=== PATIENT | female | born 2000 | race Caucasian/White ===

== ENCOUNTER 2022-08-27 17:03 | Emergency (ER) | payer MEDICAID, SELFPAY ==
[2022-08-27 17:19] VITALS: BP 145/95; PULSE 82; RESP 16; TEMP 36.6; O2SAT 99
[2022-08-27 18:59] LABS: Basophils % 0.3 %; Eosinophils # 0.2 10^3/uL (0.0-0.8); Eosinophils % 2.1 %; Hematocrit 37.8 % (37.0-47.0); Hemoglobin 12.3 g/dL (11.5-15.3); Lymphocytes # 2.8 10^3/uL (0.8-4.8); Lymphocytes % 27.6 %; Mean Corpuscular HGB Conc 32.5 g/dL (30.0-36.0); Mean Corpuscular Hemoglobin 25.2 pg (28.0-34.0); Mean Corpuscular Volume 77.5 fl (81-99); Mean Platelet Volume 9.6 fL (7.4-10.4); Monocytes # 0.6 10^3/uL (0.2-0.9); Monocytes % 6.3 %; Neutrophils # 6.48 10^3/uL (1.8-7.7); Neutrophils % 63.3 %; Nucleated Red Blood Cells % 0 %; Platelet Count 320 10^3/cmm (130-400); Red Blood Count 4.88 10^6/uL (4.1-5.3); Red Cell Distribution Width 14.2 % (12.1-15.1); White Blood Count 10.2 10^3/uL (4.0-10.0)
[2022-08-27 19:15] VITALS: BP 115/65; PULSE 90; RESP 16; O2SAT 98
--- NOTE | 2022-08-27 19:27 | ED_ITS ---
HPI - GI Bleed General: Chief complaint: GI Bleed Stated complaint: diarrhea/bloody stool/abd pain Time Seen by Provider: 08/27/22 19:08 Source: patient Mode of arrival: ambulatory Limitations: no limitations History of Present Illness: 22-year-old female states she has had chronic diarrhea. States she has had diarrhea for over 3 years she states that she just moved. She is never seen anyone for this she states she just does not want to do she has not been taking any meds states she had some slight blood in her stool as well. She denies any pain denies any fever denies any vomiting or diarrhea. Associated symptoms: Denies chills, fever(s), headache(s) or rash Review of Systems Const: Denies: fever(s), chills, body aches or change in appetite ENMT: Denies: throat pain or dental pain Card: Denies: chest pain Resp: Denies: dyspnea GI: Reports: diarrhea and hematochezia : Denies: dysuria Musc: Denies: neck pain or back pain Skin/Breast: Denies: rash Neuro: Denies: headache(s) PFSH ED PFSH: Medical History (Updated 08/27/22 @ 19:52 by Daja Ackerman MD) No pertinent past medical history Social History (Updated 08/27/22 @ 19:28 by Daja Ackerman MD) Substance/Drug Use: never Physical Exam Const: COMMON NORMALS: no acute distress, patient oriented x3 and healthy appearing HENMT: COMMON NORMALS: normocephalic and atraumatic HEAD & SCALP: normocephalic and atraumatic Eye: COMMON NORMALS: conjunctivae normal CONJUNCTIVA: Yes conjunctivae normal Neck/C-Spine: COMMON NORMALS: supple Chest: COMMONS NORMALS: normal inspection of the chest and normal palpation of entire chest wall Resp: COMMON NORMALS: normal respiratory effort, No retractions, No use of accessory muscles and clear to auscultation bilaterally AUSCULTATION: clear to auscultation bilaterally Cardio: COMMON NORMALS: regular rate, regular rhythm and No murmurs present (Cardio) RATE: regular rate RHYTHM: regular rhythm GI: COMMON NORMALS: Normal to inspection, nondistended, normoactive bowel sounds present, Soft to palpation, non-tender and no masses PALPATION: Yes Soft to palpation Extremity: COMMON NORMALS: normal to inspection and full ROM Neuro: COMMON NORMALS: patient oriented x3, moves all extremities and no focal motor deficits Psych: COMMON NORMALS: mental status grossly normal, Normal thought process present and cooperative THOUGHT PROCESS: Normal thought process present Skin: COMMON NORMALS: no rashes or lesions noted and no wounds GENERAL SKIN EXAM: no rashes or lesions noted Course Vital Signs: Vital signs: Vital Signs Temperature 97.8 F 08/27/22 17:19 Pulse Rate 90 08/27/22 19:15 Respiratory Rate 16 08/27/22 19:15 Blood Pressure 115/65 08/27/22 19:15 Pulse Oximetry 98 08/27/22 19:15 Oxygen Delivery Me thod Room Air 08/27/22 19:15 MDM - GI Bleed Medical Decision Making Patient presents for diarrhea is been chronic in nature its been going on for years she just moved here she had some blood in her stool she refused a rectal exam her hemoglobin here is normal is likely from a fissure. We will start her on Imodium along with Bentyl she is to follow-up with the PCP I put an order into case management she is return if worsening she has no pain abdominal exam is benign she understands agrees to plan. Lab Data 08/27/22 18:38 08/27/22 18:38 Laboratory Results WBC 10.2 10^3/uL (4.0-10.0) H 08/27/22 18:38 RBC 4.88 10^6/uL (4.1-5.3) 08/27/22 18:38 Hgb 12.3 g/dL (11.5-15.3) 08/27/22 18:38 Hct 37.8 % (37.0-47.0) 08/27/22 18:38 MCV 77.5 fl (81-99) L 08/27/22 18:38 MCH 25.2 pg (28.0-34.0) L 08/27/22 18:38 MCHC 32.5 g/dL (30.0-36.0) 08/27/22 18:38 RDW 14.2 % (12.1-15.1) 08/27/22 18:38 Plt Count 320 10^3/cmm (130-400) 08/27/22 18:38 MPV 9.6 fL (7.4-10.4) 08/27/22 18:38 Neut % (Auto) 63.3 % 08/27/22 18:38 Lymph % (Auto) 27.6 % 08/27/22 18:38 [place] % (Auto) 6.3 % 08/27/22 18:38 Eos % (Auto) 2.1 % 08/27/22 18:38 Baso % (Auto) 0.3 % 08/27/22 18:38 Neut # (Auto) 6.48 10^3/uL (1.8-7.7) 08/27/22 18:38 Lymph # (Auto) 2.8 10^3/uL (0.8-4.8) 08/27/22 18:38 [place] # (Auto) 0.6 10^3/uL (0.2-0.9) 08/27/22 18:38 Eos # (Auto) 0.2 10^3/uL (0.0-0.8) 08/27/22 18: Baso # (Auto) 0.0 10^3/uL (0.0-0.1) 08/27/22 18:38 Nucleated RBC % (auto) 0 % 08/27/22 18: Nucleated RBCs # 0.0 /100WBC 08/27/22 18:38 Sodium 141 mmol/L (136-145) 08/27/22 18:38 Potassium 4.1 mmol/L (3.5-5.1) 08/27/22 18:38 Chloride 105 mmol/L (98-107) 08/27/22 18:38 Carbon Dioxide 25 mmol/L (22-29) 08/27/22 18:38 Anion Gap 15.1 (5-19) 08/27/22 18:38 BUN 10 mg/dL (6-20) 08/27/22 18:38 Creatinine 0.7 mg/dL (0.5-0.9) 08/27/22 18:38 GFR Calculation 104.6 mL/min (90-130) 08/27/22 18:38 Glucose 85 mg/dL (65-115) 08/27/22 18:38 Calculated Osmolality 290 mOsm/kg (285-295) 08/27/22 18:38 Calcium 8.4 mg/dL (8.5-10.5) L 08/27/22 18:38 Total Bilirubin 0.3 mg/dL (0.15-1.2) 08/27/22 18:38 AST 11 U/L (0-32) 08/27/22 18:38 ALT 12 U/L (0-33) 08/27/22 18:38 Alkaline Phosphatase 94 U/L (35-105) 08/27/22 18:38 Total Protein 7.4 g/dL (6.6-8.7) 08/27/22 18:38 Albumin 4.2 g/dL (3.5-5.2) 08/27/22 18:38 Globulin 3.2 g/dL (1.3-4.6) 08/27/22 18:38 Discharge Plan Discharge Patient Disposition: Home Clinical Impression: Diarrhea, Blood in stool Prescriptions: New Imodium A-D 2 mg capsule 2 mg PO Q6H PRN (Reason: loose stool) Qty: 30 0RF dicyclomine 20 mg tablet 20 mg PO TID PRN (Reason: abdominal discomfort) Qty: 30 0RF Discharge Orders: Discharge ED (Routine); Ordered 08/27/22 Ordered By: Daja Ackerman Discharge Diet: Advance as tolerated Discharge Activity: Resume usual activity Patient Instructions: Chronic Diarrhea (ED) Stand Alone Forms: Work/School Release Coding Level of Care Code ED Timber Cruiser for Delmy Marley
[2022-08-27 19:29] LABS: Alanine Aminotransferase 12 U/L (0-33); Albumin Level 4.2 g/dL (3.5-5.2); Alkaline Phosphatase 94 U/L (35-105); Anion Gap 15.1 (5-19); Aspartate Amino Transferase 11 U/L (0-32); Blood Urea Nitrogen 10 mg/dL (6-20); Calcium 8.4 mg/dL (8.5-10.5); Carbon Dioxide 25 mmol/L (22-29); Chloride 105 mmol/L (98-107); Globulin 3.2 g/dL (1.3-4.6); Glomerular Filtration Rate 104.6 mL/min (90-130); Glucose 85 mg/dL (65-115); Osmolality Calculated 290 mOsm/kg (285-295); Potassium 4.1 mmol/L (3.5-5.1); Sodium 141 mmol/L (136-145); Total Bilirubin 0.3 mg/dL (0.15-1.2); Total Protein 7.4 g/dL (6.6-8.7)
[2022-08-27] MEDS: diphenoxylate/atropine Tablet 2 TAB PO (19:38)
[2022-08-27] MEDS: dicyclomine 20 mg Tablet PO (19:38)
--- NOTE | 2022-08-28 09:46 | DCPLANNER ---
senior consulting manager had message to speak with patient about getting established with a primary care physicia. senior consulting manager called patient, not accepting calls at this time.
--- NOTE | 2022-09-01 14:26 | DCPLANNER ---
associate manager affiliate marketing called patient due to no primary care physician - not accepting calls at this time.
== END 2022-08-27 20:03 | disposition home or self-care (01) ==
PROVIDERS: Nurse Practitioner Family; Emergency Provider Emergency Medicine
DX: R19.7 Diarrhea, unspecified (principal); K92.1 Melena
CPT/HCPCS: 36415; 80053; 85025; 99283

== ENCOUNTER 2022-09-09 17:28 | Emergency (ER) | payer MEDICAID, SELFPAY ==
[2022-09-09 17:35] VITALS: BP 146/77; PULSE 84; RESP 16; TEMP 36.6; O2SAT 95; BMI 37.8
--- NOTE | 2022-09-09 18:25 | W.ED.BACK ---
HPI - Back Pain/Injury General: Chief Complaint: Back Pain/Injury Stated Complaint: back pain Time Seen by Provider: 09/09/22 18:22 History of Present Illness: 22-year-old female comes in today with complaints of low back pain that radiates down her right leg. Patient also has some problems with diarrhea when she has this type of back pain. Patient reports she has had issues with her back hurting for several years now. This episode has been for the last 4 days and today she is able to ambulate better without difficulty. Patient states she has no primary care. Patient appears nontoxic. Patient appears in mild pain. Associated symptoms: Deny fever(s) or vomiting Review of Systems Const: Denies: fever(s) Card: Denies: chest pain Resp: Denies: dyspnea GI: Reports: diarrhea; Denies: vomiting : Denies: difficulty voiding Musc: Reports: back pain Skin/Breast: Denies: rash Neuro: Reports: numbness in extremities (Right side) [facility] ED PFSH: Medical History (Updated 09/09/22 @ 18:41 by ARNALDO Medeiros) No pertinent past medical history Social History (Updated 08/27/22 @ 19:28 by Daja Ackerman MD) Substance/Drug Use: never Physical Exam Const: COMMON NORMALS: alert HENMT: COMMON NORMALS: normocephalic HEAD & SCALP: normocephalic Neck/C-Spine: COMMON NORMALS: full ROM Resp: COMMON NORMALS: normal respiratory effort and clear to auscultation bilaterally AUSCULTATION: clear to auscultation bilaterally Cardio: COMMON NORMALS: regular rate and regular rhythm RATE: regular rate RHYTHM: regular rhythm GI: COMMON NORMALS: non-tender Back/Pelvis: THORACIC SPINE/UPPER BACK: No thoracic spinal tenderness LUMBAR SPINE/LOWER BACK: Yes lumbar spinal tenderness Lumbar spinal tenderness location: L5 and Yes paraspinal muscle tenderness Extremity: COMMON NORMALS: normal to inspection Neuro: SENSORIUM/ORIENTATION: Yes alert Skin: COMMON NORMALS: turgor normal GENERAL SKIN EXAM: turgor normal Course Vital Signs: Vital signs: Vital Signs Temperature 97.9 F 09/09/22 17:35 Pulse Rate 84 09/09/22 17:35 Respiratory Rate 16 09/09/22 17:35 Blood Pressure 146/77 09/09/22 17:35 Pulse Oximetry 95 09/09/22 17:35 Oxygen Delivery Me thod Room Air 09/09/22 17:35 MDM - Back Pain/Injury Medical Decision Making 22-year-old female comes in today with complaints of low back pain. On exam patient has tenderness L5-S1 area of the lumbar spinal column. Abdomen soft nontender. Skin is warm and dry. Negative leg lift test. Distal pulses are intact. Patient reports some numbness to the right lower extremity, no foot drop is noted. Differential diagnosis includes lumbar strain, intervertebral disc disease, facet arthropathy, lumbar radiculopathy. Reviewed exam with patient with recommendations for treatment and follow-up. This is a recurrent problem for the patient most likely due to weight and intervertebral disc disease. Recommended patient follow-up with primary care for further evaluation and treatment. No sign of severe abnormalities is noted at this time. Patient reported understanding agreed to plan. Discharge Plan Discharge Patient Disposition: Home Clinical Impression: Sciatica Qualifiers: Laterality: right Qualified Code(s): M54.31 - Sciatica, right side Condition: Stable Prescriptions: New hydrocodone-acetaminophen 5-325 mg tablet 1 tab PO Q8H PRN (Reason: pain (scale score 7-10)) Qty: 10 0RF diclofenac sodium 75 mg tablet,delayed release (DR/EC) 75 mg PO BID Qty: 30 0RF No Action Imodium A-D 2 mg capsule 2 mg PO Q6H PRN (Reason: loose stool) Qty: 30 0RF dicyclomine 20 mg tablet 20 mg PO TID PRN (Reason: abdominal discomfort) Qty: 30 0RF Discharge Orders: Discharge ED (Routine); Ordered 09/09/22 Ordered By: Frankie Rae Discharge Diet: Usual diet Discharge Activity: Increase activity as tolerated Patient Instructions: Lumbar Radiculopathy (ED), Lower Back Exercises (ED), Opioid Safety Activity Restrictions/Additional Instructions: Activity as tolerated. Gentle stretching and range of motion exercises. Drink plenty of water and fluids. Use diclofenac 75 mg 1 tablet twice a day to help with pain and inflammation. Use acetaminophen for further pain control. Use hydrocodone for severe pain. Do not use hydrocodone if driving or operating equipment weight yourself or others may be at risk. Follow-up with primary care. Case management will contact you with follow-up appointment for primary care. Stand Alone Forms: Work/School Release Coding Level of Care Code ED Tower Equipment Repairer for Delmy Marley
[2022-09-09] MEDS: HYDROcodone-acetaminophen 5-325 mg Tablet 1 TAB PO (18:59)
[2022-09-09] MEDS: ketorolac 30 mg/mL INJ IM (18:59)
--- NOTE | 2022-09-10 08:44 | DCPLANNER ---
environmental compliance manager had message to speak with patient about getting established with a primary care physician. environmental compliance manager called phone number [phone] - case work aide unable to speak with patient at this time due to phone not accepting calls at this time.
== END 2022-09-09 19:04 | disposition home or self-care (01) ==
PROVIDERS: Emergency Provider Nurse Practitioner Family
DX: M54.31 Sciatica, right side (principal)
CPT/HCPCS: 96372; 99284; J1885

== ENCOUNTER 2022-10-31 12:55 | Inpatient (IN) | payer MEDICAID, SELFPAY ==
[2022-10-31 12:57] VITALS: BP 122/92; PULSE 83; RESP 18; TEMP 36.8; O2SAT 98; BMI 34.3
--- NOTE | 2022-10-31 13:00 | W.ED.PSYCHS ---
HPI - Psych General: Chief Complaint: Psychiatric Symptoms Stated Complaint: PSYCH EVAL Time Seen by Provider: 10/31/22 12:59 History of Present Illness: Ms. Yancey is a 22-year-old lady presenting the emergency department for suicidal ideation. She reports worsening symptoms over the past month with increased social stressors. She reports plan to overdose on her roommates medications. She feels socially isolated and has limited resources and social support. She does report a history of depression though is not currently on medications. She reports difficulty with sleep, headaches, palpitations, generally feeling unwell. No other specific changes in health, exacerbating, or alleviating factors identified. Onset (ago): week(s) Duration: getting worse History of same: Yes Context: significant life stressor Associated psychiatric symptoms: depression and suicidal ideation Review of Systems General: Reports: 10 or more systems reviewed and unremarkable except in HPI and below PFSH ED PFSH: Medical History No pertinent past medical history Social History Substance/Drug Use: never Physical Exam Const: COMMON NORMALS: alert GENERAL APPEARANCE: cooperative and well developed HENMT: COMMON NORMALS: normocephalic and atraumatic HEAD & SCALP: normocephalic and atraumatic Eye: COMMON NORMALS: conjunctivae normal CONJUNCTIVA: Yes conjunctivae normal SCLERA: sclerae normal Neck/C-Spine: COMMON NORMALS: supple GENERAL: Yes trachea midline Resp: COMMON NORMALS: clear to auscultation bilaterally EFFORT & INSPECTION: Yes able to speak in complete sentences AUSCULTATION: clear to auscultation bilaterally Cardio: COMMON NORMALS: regular rate and regular rhythm RATE: regular rate RHYTHM: regular rhythm GI: COMMON NORMALS: Soft to palpation PALPATION: Yes Soft to palpation and No Tenderness to palpation present (GI) Extremity: GENERAL: Yes normal exam except as noted and No edema Neuro: COMMON NORMALS: moves all extremities SENSORIUM/ORIENTATION: Yes alert and No Orientation impaired Psych: COMMON NORMALS: mental status grossly normal and Normal thought process present THOUGHT PROCESS: Normal thought process present Course Vital Signs: Vital signs: Vital Signs Temperature 98.4 F 11/03/22 20:32 Pulse Rate 94 11/04/22 07:18 Respiratory Rate 15 11/04/22 07:18 Blood Pressure 95/64 11/04/22 07:18 Pulse Oximetry 97 11/04/22 07:18 Oxygen Delivery Me thod Room Air 11/03/22 20:32 MDM - Psych Medical Decision Making 22-year-old female presenting with suicidal and homicidal ideation. Patient is calm and cooperative, nontoxic on exam. Labs demonstrate no significant hematologic or metabolic abnormality. TSH is normal. Urine drug screen and toxic ingestions are negative. hCG negative. Given physical exam and clinical history provided there is no indication for imaging at this time. Based on ED evaluation at this point there is no obvious condition that would preclude the patient from inpatient management of psychiatric concerns/symptoms. Discussed with psychiatry service who was agreeable to admit patient. Patient desires admission. Medical Records I reviewed the patient's medical records. Lab Data I reviewed the patient's lab results. 10/31/22 13:47 10/31/22 13:47 Laboratory Results WBC 8.2 10^3/uL (4.0-10.0) 10/31/22 13:47 RBC 5.52 10^6/uL (4.1-5.3) H 10/31/22 13:47 Hgb 14.0 g/dL (11.5-15.3) 10/31/22 13:47 Hct 43.5 % (37.0-47.0) 10/31/22 13:47 MCV 78.8 fl (81-99) L 10/31/22 13:47 MCH 25.4 pg (28.0-34.0) L 10/31/22 13:47 MCHC 32.2 g/dL (30.0-36.0) 10/31/22 13:47 RDW 14.3 % (12.1-15.1) 10/31/22 13:47 Plt Count 364 10^3/cmm (130-400) 10/31/22 13:47 MPV 10.3 fL (7.4-10.4) 10/31/22 13:47 Neut % (Auto) 63.3 % 10/31/22 13:47 Lymph % (Auto) 28.1 % 10/31/22 13:47 [place] % (Auto) 5.4 % 10/31/22 13:47 Eos % (Auto) 2.4 % 10/31/22 13:47 Baso % (Auto) 0.4 % 10/31/22 13:47 Neut # (Auto) 5.18 10^3/uL (1.8-7.7) 10/31/22 13:47 Lymph # (Auto) 2.3 10^3/uL (0.8-4.8) 10/31/22 13:47 [place] # (Auto) 0.4 10^3/uL (0.2-0.9) 10/31/22 13:47 Eos # (Auto) 0.2 10^3/uL (0.0-0.8) 10/31/22 13:47 Baso # (Auto) 0.0 10^3/uL (0.0-0.1) 10/31/22 13:47 Nucleated RBC % (auto) 0 % 10/31/22 13:47 Nucleated RBCs # 0.0 /100WBC 10/31/22 13:47 Sodium 140 mmol/L (136-145) 10/31/22 13:47 Potassium 3.6 mmol/L (3.5-5.1) 10/31/22 13:47 Chloride 104 mmol/L (98-107) 10/31/22 13:47 Carbon Dioxide 23 mmol/L (22-29) 10/31/22 13:47 Anion Gap 16.6 (5-19) 10/31/22 13:47 BUN 8 mg/dL (6-20) 10/31/22 13:47 Creatinine 0.7 mg/dL (0.5-0.9) 10/31/22 13:47 GFR Calculation 104.6 mL/min (90-130) 10/31/22 13:47 Glucose 93 mg/dL (65-115) 10/31/22 13:47 Calculated Osmolality 288 mOsm/kg (285-295) 10/31/22 13:47 Calcium 9.3 mg/dL (8.5-10.5) 10/31/22 13:47 Total Bilirubin 0.6 mg/dL (0.15-1.2) 10/31/22 13:47 AST 20 U/L (0-32) 10/31/22 13:47 ALT 18 U/L (0-33) 10/31/22 13:47 Alkaline Phosphatase 106 U/L (35-105) H 10/31/22 13:47 Total Protein 8.1 g/dL (6.6-8.7) 10/31/22 13:47 Albumin 4.8 g/dL (3.5-5.2) 10/31/22 13:47 Globulin 3.3 g/dL (1.3-4.6) 10/31/22 13:47 TSH 1.29 uIU/mL (0.27-4.20) 10/31/22 13:47 HCG, Qual Negative (Negative) 10/31/22 13:47 Salicylates 1.3 mg/dL (3-10) L 10/31/22 13:47 Urine Opiates Screen Negative ng/mL (Negative) 10/31/22 13:37 Acetaminophen < 5.0 ug/mL (10-30) L 10/31/22 13:47 Ur Barbiturates Screen Negative ng/mL (Negative) 10/31/22 13:37 Ur Phencyclidine Scrn Negative ng/mL (Negative) 10/31/22 13:37 Ur Amphetamines Screen Negative ng/mL (Negative) 10/31/22 13:37 U Benzodiazepines Scrn Negative ng/mL (Negative) 10/31/22 13:37 Urine Cocaine Screen Negative ng/mL (Negative) 10/31/22 13:37 U Marijuana (THC) Screen Negative ng/mL (Negative) 10/31/22 13:37 Ethyl Alcohol < 10 mg/dL (0-10) 10/31/22 13:47 Discharge Plan Discharge Patient Disposition: Admitted As Inpatient Admit Provider: Nicanor Bueno Clinical Impression: Suicidal ideation Condition: Stable Discharge Diet: Regular Discharge Activity: Resume usual activity Coding Level of Care Code ED Boiling House Hand for Delmy Marley
[2022-10-31 13:07] VITALS: BP 122/92; PULSE 83; RESP 18; O2SAT 98
[2022-10-31 14:02] LABS: Basophils % 0.4 %; Eosinophils # 0.2 10^3/uL (0.0-0.8); Eosinophils % 2.4 %; Hematocrit 43.5 % (37.0-47.0); Lymphocytes # 2.3 10^3/uL (0.8-4.8); Lymphocytes % 28.1 %; Mean Corpuscular HGB Conc 32.2 g/dL (30.0-36.0); Mean Corpuscular Hemoglobin 25.4 pg (28.0-34.0); Mean Corpuscular Volume 78.8 fl (81-99); Mean Platelet Volume 10.3 fL (7.4-10.4); Monocytes # 0.4 10^3/uL (0.2-0.9); Monocytes % 5.4 %; Neutrophils # 5.18 10^3/uL (1.8-7.7); Neutrophils % 63.3 %; Nucleated Red Blood Cells % 0 %; Platelet Count 364 10^3/cmm (130-400); Red Blood Count 5.52 10^6/uL (4.1-5.3); Red Cell Distribution Width 14.3 % (12.1-15.1); White Blood Count 8.2 10^3/uL (4.0-10.0)
[2022-10-31 14:29] LABS: HCG, Serum Qual Negative (Negative)
--- NOTE | 2022-10-31 14:29 | PC.NURSE ---
REPORT CALLED TO RYAN WHATLEY.
[2022-10-31 14:32] LABS: Alanine Aminotransferase 18 U/L (0-33); Albumin Level 4.8 g/dL (3.5-5.2); Alkaline Phosphatase 106 U/L (35-105); Anion Gap 16.6 (5-19); Aspartate Amino Transferase 20 U/L (0-32); Blood Urea Nitrogen 8 mg/dL (6-20); Calcium 9.3 mg/dL (8.5-10.5); Carbon Dioxide 23 mmol/L (22-29); Chloride 104 mmol/L (98-107); Globulin 3.3 g/dL (1.3-4.6); Glomerular Filtration Rate 104.6 mL/min (90-130); Glucose 93 mg/dL (65-115); Osmolality Calculated 288 mOsm/kg (285-295); Potassium 3.6 mmol/L (3.5-5.1); Salicylate 1.3 mg/dL (3-10); Sodium 140 mmol/L (136-145); Thyroid Stimulating Hormone 1.29 uIU/mL (0.27-4.20); Total Bilirubin 0.6 mg/dL (0.15-1.2); Total Protein 8.1 g/dL (6.6-8.7)
[2022-10-31 14:37] LABS: Acetaminophen < 5.0 ug/mL (10-30); Alcohol Level < 10 mg/dL (0-10)
[2022-10-31 15:16] LABS: Amphetamines Screen Urine Negative (Negative); Barbiturates Screen Urine Negative (Negative); Benzodiazepines Screen Urine Negative (Negative); Cocaine Screen Urine Negative (Negative); Opiate Screen Urine Negative (Negative); PCP Screen Urine Negative (Negative); THC Screen Urine Negative (Negative)
[2022-10-31] MEDS: hyDROXYzine 25 mg Capsule 50 MG PO (18:45)
[2022-10-31 21:24] VITALS: BP 107/67; PULSE 91; RESP 16; TEMP 36.6; O2SAT 97
[2022-11-01 06:00] VITALS: BP 115/71; PULSE 105; RESP 16; TEMP 36.9; O2SAT 99
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
[2022-11-01 14:00] VITALS: BP 111/69; PULSE 108; RESP 16; TEMP 36.6; O2SAT 98
[2022-11-01] MEDS: hyDROXYzine 25 mg Capsule 50 MG PO (15:05)
[2022-11-01 20:19] VITALS: BP 100/62; PULSE 103; RESP 16; TEMP 37; O2SAT 98
[2022-11-02 06:00] VITALS: BP 115/70; PULSE 93; RESP 16; TEMP 37; O2SAT 98
[2022-11-02] MEDS: escitalopram 10 mg Tablet PO (08:25)
[2022-11-02] MEDS: hyDROXYzine 25 mg Capsule 50 MG PO ×2 (09:36→16:16)
--- NOTE | 2022-11-02 09:37 | PC.NURSE ---
PRN School Bus Driver- Patient talked with business case analyst about living situation and became very stressed. She stated she felt like her brain was going to implode and her heart was going to explode. This RN administered vistaril 50mg PO.
[2022-11-02 14:00] VITALS: BP 125/64; PULSE 88; RESP 16; TEMP 36.8; O2SAT 95
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
[2022-11-02] MEDS: OLANZapine 5 mg ODT PO (18:24)
--- NOTE | 2022-11-02 18:24 | PC.NURSE ---
PRN Senior Support Engineer Patient talked to her roommate and became very anxious, wringing her hands and stating that it just stressed her out. Talked through breathing techniques and administered zyprexa 10mg odt
[2022-11-02 20:29] VITALS: BP 91/54; PULSE 97; RESP 16; TEMP 36.8; O2SAT 97
[2022-11-03 06:00] VITALS: BP 91/54; PULSE 83; RESP 16; TEMP 36.6; O2SAT 99
[2022-11-03] MEDS: escitalopram 10 mg Tablet PO (08:43)
[2022-11-03 14:00] VITALS: BP 115/73; PULSE 91; RESP 16; TEMP 36.6; O2SAT 98
[2022-11-03] MEDS: hyDROXYzine 25 mg Capsule 50 MG PO (16:30)
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
[2022-11-03 20:00] VITALS: BP 111/73; PULSE 86; RESP 22; TEMP 36.9; O2SAT 96
[2022-11-03 20:32] VITALS: BP 111/73; PULSE 86; RESP 22; TEMP 36.9; O2SAT 96
[2022-11-03] MEDS: OLANZapine 5 mg ODT PO (21:17)
[2022-11-03] MEDS: trazodone 50 mg Tablet PO (21:17)
[2022-11-04 06:00] VITALS: BP 95/64; PULSE 94; RESP 15; O2SAT 97
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
[2022-11-04 07:18] VITALS: BP 95/64; PULSE 94; RESP 15; O2SAT 97
[2022-11-04] MEDS: escitalopram 10 mg Tablet PO (07:27)
== END 2022-11-04 07:46 | disposition home or self-care (01) | DRG 881 ==
LOC: ER 14:10 → NP 14:15
PROVIDERS: Admitting Provider Psychiatry & Neurology Psychiatry; Emergency Provider Emergency Medicine; Visit Provider Psychiatry & Neurology Psychiatry
DX: F32.9 Major depressive disorder, single episode, unspecified (principal); R45.851 Suicidal ideations; R41.83 Borderline intellectual functioning; F43.10 Post-traumatic stress disorder, unspecified; X58.XXXS Exposure to other specified factors, sequela
CPT/HCPCS: 36415; 80053; 80306; 80307; 84443; 84703; 85025; 97150; 97165; 99238; 99285